=== PATIENT | female | born 1960 | race Caucasian/White ===

== ENCOUNTER → 2024-05-29 14:12 | Outpatient (REF) | payer MEDICARE, SELFPAY | LOC: WDC 14:12 | PROVIDERS: ATTENDING PHYSICIAN Nurse Practitioner | DX: Z12.31 Encounter for screening mammogram for malignant neoplasm of breast (principal) | CPT/HCPCS: 77063; 77067 ==

== ENCOUNTER → 2025-07-01 12:38 | Outpatient (REF) | payer MEDICARE, SELFPAY | LOC: WDC 12:38 | PROVIDERS: ATTENDING PHYSICIAN Nurse Practitioner | DX: Z12.31 Encounter for screening mammogram for malignant neoplasm of breast (principal) | CPT/HCPCS: 77063; 77067 ==